=== PATIENT | male | born 1990 | race Caucasian/White ===

== ENCOUNTER 2017-02-10 07:44 | Emergency (ER) | payer OTHER ==
[2017-02-10 07:48] VITALS: BP 144/77; PULSE 67; TEMP 98.4; BMI 26.5
[2017-02-10] MEDS ORDERED: DIPHTH,PERTUSS(ACELL),TET 0.5 ML DISP.SYRIN IM ONE (08:31)
[2017-02-10] MEDS ORDERED: HIV POST EXPOSURE PROPHYLAXIS KIT NR ONE (08:33)
--- NOTE | 2017-02-10 08:37 | PDOC ---
Post Exposure HPI - General Chief Complaint: Non EmpBld/Body Flud Exposure Stated Complaint: NEEDLE STICK Time Seen by Provider: 02/10/17 08:16 History Source: Patient Exam Limitations: No Limitations - History of Present Illness Initial Comments: 02/10/17 08:40 My chief complaint: Needlestick to left thumb at work this morning History of present illness: Patient is a 26-year-old male who works at [employer] who was cannulating a pt with a 15-gauge to a patient when he became stuck with 15-gauge needle puncturing his left distal palmar thumb area bled area was washed with soap and water. Source individual was negative for hepatitis B and hepatitis C however HIV status was unknown. Patient was sent here for postexposure evaluation. Patient has had his first 2 hepatitis B vaccines 01/04 & 01/27/17. Spoke to fixer supervisor at [employer] and they are getting HIV testing on the patient however unsure whether or not they can get results back until 2-3 days. 02/10/17 10:33 02/10/17 10:48 Timing: this morning (around 6 am today) Severity: mild Exposed Location: Left: Finger(s) (thumb plantar distal ) Assessing Significant Risk PEP: Yes Percutaneous Past History - Past Medical History Allergies/Adverse Reactions: Allergies Allergy/AdvReac Type Severity Reaction Status Date / Time Penicillins Allergy Hives Verified 02/10/17 07:49 shellfish derived Allergy Difficulty Verified 02/10/17 07:49 Breathing Home Medications: Ambulatory Orders NK [No Known Home Medication] 02/10/17 COPD: No - Suicide/Smoking/Psychosocial Hx Smoking History: Never smoked Hx Alcohol Use: Yes (SOCIAL) Drug/Substance Use Hx: No Review of Systems - Review of Systems Able to Perform ROS?: Yes Constitutional: No: Symptoms Reported HEENTM: No: Symptoms Reported Respiratory: No: Symptoms reported Cardiac (ROS): No: Symptoms Reported ABD/GI: No: Symptoms Reported : No: Symptoms Reported Musculoskeletal: No: Symptoms Reported Integumentary: Yes: Other (punctate yoana left distal palmar thumb ) Neurological: No: Symptoms reported *Physical Exam - Vital Signs Last Vital Signs Temp Pulse Resp BP Pulse Ox 98.4 F 67 18 144/77 99 02/10/17 07:45 02/10/17 07:45 02/10/17 07:45 02/10/17 07:45 02/10/17 07:45 - Physical Exam General Appearance: Yes: Appropriately Dressed Respiratory/Chest: positive: Lungs Clear, Normal Breath Sounds Cardiovascular: positive: Regular Rhythm, Regular Rate, S1, S2 Extremity: positive: Normal Capillary Refill, Normal Range of Motion (left thumb ). negative: Tender, Swelling Integumentary: positive: Other (punctate yoana left distal palmar thumb ) Neurologic: positive: Alert, Normal Response, Responsive Post Exposure - ED Protocol - Exposure Treatment Washing/Decontamination: Soap/Water Source Patient HIV Status:: Unknown Is PEP indicated?: Yes Prophylaxis for HIV discussed?: Yes Prophylaxis given?: Yes Prophylaxis refused?: Yes Treatment Given:: Truvada (Tenof+Emtricita), Isentress (Raltegravir) Drug(s) Information Sheets given:: Yes Baseline bloods drawn prophylaxis:(use *Exposure-Hosp Emp): Yes Additional Treatment:: DT (TDAP) - Referrals Other Post Exposure pt. referral to PCP: Yes Medical Decision Making - Medical Decision Making Patient is a 26-year-old male who works at [employer] who was cannulating a pt with a 15-gauge to a patient when he became stuck with 15- gauge needle puncturing his left distal palmar thumb area bled area was washed with soap and water. Source individual was negative for hepatitis B and hepatitis C however HIV status was unknown. Patient was sent here for postexposure evaluation. Patient has had his first 2 hepatitis B vaccines 01/04 & 01/27/17. Spoke to fixer supervisor at [facility] [employer] and they are getting HIV testing on the patient however unsure whether or not they can get results back until 2-3 days. Needlestick exposure PEP indictated PLAN post exposure labs ordered TDAP 0.5 ml IM Reviewed indication for PEP with patient and side effects of Truvada and insentress. Patient agrees to take PEP medication. Patient given one in centers and one Truvada. Patient given strict instructions to take medication at the same time daily Truvada once a day at 10 am can take at the same time as and Insentress one tab 10 am and one tab in evening. H will follow up at the [facility] for further evaluation 02/10/17 09:28 Laboratory Tests 12/06/17 12/06/17 08:44 08:44 WBC 5.3 RBC 5.05 Hgb 15.2 Hct 44.4 MCV 88.1 MCH 30.1 MCHC 34.1 RDW 13.4 Plt Count 206 MPV 9.5 Neutrophils % 42.7 L Lymphocytes % 45.2 H Monocytes % 9.3 Eosinophils % 2.2 Basophils % 0.6 Sodium 140 Potassium 4.2 Chloride 103 Carbon Dioxide 29 Anion Gap 8 BUN 14 Creatinine 0.9 Creat Clearance w eGFR > 60 Random Glucose 96 Calcium 9.7 Phosphorus 4.0 Total Bilirubin 0.6 GGT 35 AST 15 ALT 52 Alkaline Phosphatase 65 LD Total 138 Total Protein 7.9 Albumin 4.4 Triglycerides 160 02/10/17 10:48 Laboratory Tests 02/10/17 08:15 HIV 1&2 Antibody Screen Negative HIV P24 Antigen Negative 02/10/17 10:50 *DC/Admit/Observation/Transfer Diagnosis at time of Disposition: Needlestick injury of finger of left hand Qualifiers: Encounter type: initial encounter Qualified Code(s): S61.239A - Puncture wound without foreign body of unspecified finger without damage to nail, initial encounter; W27.3XXA - Contact with needle (sewing), initial encounter; W27.3XXA - Contact with needle (sewing), initial encounter Diagnosis at time of Disposition: (Ruled Out): Needle exposure - Discharge Dispostion Disposition: HOME Condition at time of disposition: Stable - Referrals - Patient Instructions Additional Instructions: Follow up at the [facility] for further evaluation at [phone] tomorrow You may stop taking medication if you find out that the source individual was HIV or until instructed by MD to stop medication until that time continued to take Truvada at 10 AM daily and Insentress 1 tab at 10 am and one tab in PM. Return to emergency room if any sick severe side effects from medications such as rash, difficulty swallowing breathing nausea vomiting, suicidal thoughts or decreased urination or any other symptoms develop Patient voiced understanding of discharge instructions and all questions were answered - Post Discharge Activity Forms/Work/School Notes: Back to Work
[2017-02-10] MEDS ORDERED: HIV POST EXPOSURE PROPHYLAXIS KIT PO ONE (08:46)
[2017-02-10 08:49] LABS: BASOPHIL 0.6 % (0-2.0); EOSINOPHIL 2.2 % (0-4.5); MCH 30.1 pg (25.7-33.7); MCHC 34.1 g/dl (32.0-35.9); MEAN CELL VOLUME 88.1 fl (80-96); MEAN PLT VOLUME 9.5 fl (7.5-11.1); NEUTROPHILS 42.7 % (42.8-82.8); PLATELET COUNT 206 K/MM3 (134-434); RDW 13.4 % (11.9-15.9); WHITE BLOOD COUNT 5.3 K/mm3 (4.0-10.0)
[2017-02-10 09:14] LABS: ALBUMIN 4.4 g/dl (3.4-5.0); ANION GAP 8 (8-16); CALCIUM 9.7 mg/dL (8.5-10.1); CHOLESTEROL 219 mg/dL (50-200); CO2 29 mmol/L (21-32); CREATININE 0.9 mg/dL (0.7-1.3); GLUCOSE,RANDOM 96 mg/dL (74-106); SGOT/AST 15 U/L (15-37); SGPT/ALT 52 U/L (12-78); TOT PROT 7.9 g/dl (6.4-8.2)
[2017-02-10 09:17] LABS: ALK PHOS 65 U/L (45-117); BILIRUBIN,TOTAL 0.6 mg/dL (0.2-1.0); LDH 138 U/L (87-241)
[2017-02-10 10:36] LABS: HIV 1 & 2 AB NEGATIVE; HIV 1 AGp24 NEGATIVE
== END 2017-02-10 11:07 | disposition home or self-care (01) ==
LOC: JER 07:44 → JERFT 07:44
PROC: 3E0234Z Introduction of Serum, Toxoid and Vaccine into Muscle, Percutaneous Approach (ICD-10-PCS; principal; 2017-02-10)
DX: S61.032A Puncture wound without foreign body of left thumb without damage to nail, initial encounter (principal); W46.0XXA Contact with hypodermic needle, initial encounter; Y93.F9 Activity, other caregiving; Y92.538 Other ambulatory health services establishments as the place of occurrence of the external cause; Y99.0 Civilian activity done for income or pay
CPT/HCPCS: 36415; 80053; 82465; 82977; 83615; 84100; 84478; 85025; 86704; 87340; 87389; 90715; 99282-25